=== PATIENT | male | born 1990 | race Hispanic/Latino ===

== ENCOUNTER 2024-01-23 13:51 | Emergency (ER) | payer SELFPAY ==
--- NOTE | 2024-01-23 14:05 | EDPHYS ---
Physician Documentation [facility] Name: Jaskaran Herron Age: 33 yrs Sex: Male : 1990 Arrival Date: 01/23/2024 Time: 13:51 Bed 14 Private MD: ED Physician Baldev Hernandez HPI: 01/22 14:00 This 33 yrs old Male presents to ER via EMS with complaints of Crush Injury. cp 14:00 The patient or guardian reports crush injury. The complaints affect the distal phalanx cp of right small finger. Context: resulted from a crush injury, metal scaffold. 14:00 Onset: The symptoms/episode began/occurred just prior to arrival. Associated signs and cp symptoms: The patient has no apparent associated signs or symptoms. Historical: - Allergies: 13:53 No Known Allergies; me1 - PMHx: 13:53 None; me1 - PSHx: 13:53 None; me1 - Immunization history:: Adult Immunizations unknown, Last tetanus immunization: > 10 years ago. - Infectious Disease History:: Denies. - Social history:: Smoking status: Patient denies any tobacco usage or history of. ROS: 14:02 Eyes: Negative for injury, pain, redness, and discharge, cp 14:02 Constitutional: Negative for body aches, chills, fever, 14:02 Cardiovascular: Negative for chest pain, 14:02 Respiratory: Negative for cough, shortness of breath, wheezing, 14:02 Abdomen/GI: Negative for abdominal pain, vomiting, diarrhea, constipation, 14:02 MS/extremity: Positive for injury or acute deformity, laceration, pain, of the distal phalanx of right fifth finger, 14:02 Neuro: Negative for altered mental status, dizziness, headache, 14:02 All other systems are negative, Exam: 14:02 Constitutional: The patient appears in no acute distress, alert, awake, well developed, cp well nourished, obese, uncomfortable, 14:02 Head/Face: Normocephalic, atraumatic. cp 14:02 Neck: ROM/movement: is normal, is supple, without pain, no range of motions limitations, 14:02 Chest/axilla: Inspection: normal, 14:02 Cardiovascular: Rate: normal, Rhythm: regular, 14:02 Respiratory: the patient does not display signs of respiratory distress, Respirations: normal, no use of accessory muscles, no retractions, labored breathing, is not present, Breath sounds: are clear throughout, no decreased breath sounds, no stridor, no wheezing, 14:02 Abdomen/GI: Inspection: abdomen appears normal, 14:02 Musculoskeletal/extremity: Extremities: noted in the distal phalanx of right small finger: laceration noted dasilva side and tip of digit with mild active bleeding, digit neurovascular intact, nail intact, Tendon exam: specific tendon testing normal through active and passive range of motion 14:02 Neuro: Orientation: to person, place \T\ time. Mentation: is normal, Motor: moves all fours, Vital Signs: 13:52 BP 148 / 87; Pulse 95; Resp 17; Temp 97.7; Pulse Ox 94% ; Weight 140.61 kg; Height 5 me1 ft. 10 in. ; Pain 8/10; 13:52 Body Mass Index 44.48 (140.61 kg, 177.8 cm) me1 13:52 Pain Scale: Adult me1 MDM: 13:53 Patient medically screened. cp 14:03 Differential diagnosis: dislocation, open fracture, closed fracture, contusion, tendon cp injury. 14:04 Data reviewed: vital signs, nurses notes. cp Administered Medications: 14:26 Not Given (Patient Refused): [id number] mg PO once me1 14:26 Not Given (Patient Refused): hydrocodone-tddtcoetckrvs39 mg-325 mg 1 tabs PO once; may me1 give if patient not driving 14:26 Not Given (Patient Refused): boostrix tdap0.5 ml IM once; as a single dose me1 14:26 Not Given (Patient Refused): bupivacaine(0.5 %) 5 ml 10 ml Infiltration once me1 14:26 Not Given (Patient Refused): lidocaine(1 %) 5 ml 5 ml Infiltration once; to bedside me1 Disposition: 14:50 Co-signature as Attending Physician, Baldev Hernandez MD I reviewed the patient's care rn provided by the Advanced Practice Provider and agree with the diagnosis and treatment plan. Disposition Summary: 01/23/24 14:04 Left Against Medical Advice Notes: Location: Home cp Problem: new cp Symptoms: are unchanged cp Condition: Stable cp Diagnosis - Crushing injury of right little finger, initial encounter cp Followup: cp - With: Private Physician - When: Upon discharge from the Emergency Department - Reason: Wound Recheck Discharge Instructions: - Discharge Summary Sheet cp - Crush Injury of the Hand cp Prescriptions: - Cephalexin 500 mg Oral Capsule - take 1 capsule ORAL route every 6 hours for 10 days; 40 capsule; Refills: 0, cp Product Selection Permitted Signatures: Dispatcher [employer] EDMS Baldev Hernandez MD MD rn Pb Becerril PA PA cp Mery Torrez RN RN me1 Corrections: (The following items were deleted from the chart) 13:57 13:57 Finger-Thumb Right+RAD.RAD.BRZ ordered. EDMS EDMS 23:30 14:05 MS/extremity: Positive for injury or acute deformity, laceration, pain, of the cp distal phalanx of right fifth finger, cp 23:30 14:05 Constitutional: Negative for body aches, chills, fever, cp cp 23:30 14:05 Cardiovascular: Negative for chest pain, cp cp 23:30 14:05 Respiratory: Negative for cough, shortness of breath, wheezing, cp cp 23:30 14:05 Abdomen/GI: Negative for abdominal pain, vomiting, diarrhea, constipation, cp cp 23:30 14:05 Eyes: Negative for injury, pain, redness, and discharge, cp cp 23:30 14:05 Neuro: Negative for altered mental status, dizziness, headache, cp cp 23:30 14:05 All other systems are negative, cp cp
--- NOTE | 2024-01-23 14:05 | ER ---
Nurse's Notes [facility] Name: Jaskaran Herron Age: 33 yrs Sex: Male : 1990 Arrival Date: 01/23/2024 Time: 13:51 Bed 14 Private MD: Diagnosis: Crushing injury of right little finger, initial encounter Presentation: 01/22 13:52 Chief complaint: EMS states: toned out for crush injury to right 5th digit. Coronavirus me1 screen: Vaccine status: Patient reports receiving the 2nd dose of the covid vaccine. Ebola Screen: No symptoms or risks identified at this time. Initial Sepsis Screen: Does the patient meet any 2 criteria? No. Patient's initial sepsis screen is negative. Does the patient have a suspected source of infection? No. Patient's initial sepsis screen is negative. Risk Assessment: Do you want to hurt yourself or someone else? Patient reports no desire to harm self or others. Onset of symptoms was January 23, 2024. 13:52 Method Of Arrival: EMS: [facility] [place] [place] 13:52 Acuity: DAYANARA 3 me1 Triage Assessment: 13:53 General: Appears uncomfortable, well groomed, well developed, well nourished, Behavior me1 is calm, cooperative, appropriate for age, Reports crushed the end of his right 5th digit on some scaffolding. Pain: Complains of pain in palmar aspect of distal phalanx of right little finger and right little fingernail Pain does not radiate. Pain currently is 8 out of 10 on a pain scale. Quality of pain is described as throbbing, Pain began suddenly, Is continuous. EENT: No signs and/or symptoms were reported regarding the EENT system. Neuro: Level of Consciousness is awake, alert, obeys commands, Oriented to person, place, time, situation, Appropriate for age. Cardiovascular: Patient's skin is warm and dry. Respiratory: Airway is patent Respiratory effort is even, unlabored, Respiratory pattern is regular, symmetrical. GI: No signs and/or symptoms were reported involving the gastrointestinal system. : No signs and/or symptoms were reported regarding the genitourinary system. Derm: Skin is healthy with good turgor, Skin is pink, warm \T\ dry. Wound noted palmar aspect of distal phalanx of right little finger and right little fingernail Wound is laceration/crush injury. Musculoskeletal: Reports pain in dorsal aspect of distal phalanx of right little finger, palmar aspect of distal phalanx of right little finger and right little fingernail. Injury Description: Crush injury sustained to dorsal aspect of distal phalanx of right little finger and palmar aspect of distal phalanx of right little finger is laceration was sustained 30-60 minutes ago. Historical: - Allergies: 13:53 No Known Allergies; me1 - PMHx: 13:53 None; me1 - PSHx: 13:53 None; me1 - Immunization history:: Adult Immunizations unknown, Last tetanus immunization: > 10 years ago. - Infectious Disease History:: Denies. - Social history:: Smoking status: Patient denies any tobacco usage or history of. Screenin:56 [facility] ED Fall Risk Assessment (Adult) History of falling in the last 3 months, wa1 including since admission No falls in past 3 months (0 pts) Confusion or Disorientation No (0 pts) Intoxicated or Sedated No (0 pts) Impaired Gait No (0 pts) Mobility Assist Device Used No (0 pt) Altered Elimination No (0 pt) Score/Fall Risk Level 0 - 2 = Low Risk Maintained a safe environment, Provided non-skid footwear, Hourly rounding (assess needs \T\ fall precautionary measures) done. Abuse screen: Denies threats or abuse. Nutritional screening: No deficits noted. Tuberculosis screening: No symptoms or risk factors identified. Assessment: 13:56 General: See triage assessment. . wa1 14:26 General: Patient refused treatment and stated that he wanted to leave. Counseled by wa1 EDGAR Winn regarding the need for treatment and patient still refused. AMA form signed. Patient left with steady gait and no signs of distress. Dressing to wound.. Vital Signs: 13:52 BP 148 / 87; Pulse 95; Resp 17; Temp 97.7; Pulse Ox 94% ; Weight 140.61 kg; Height 5 wa1 ft. 10 in. ; Pain 8/10; 13:52 Body Mass Index 44.48 (140.61 kg, 177.8 cm) [facility] [place] [place] 13:52 Pain Scale: Adult [facility] [place] [place] ED Course: 13:51 Patient arrived in ED. [facility] [place] [place] 13:52 Pb Becerril PA is PHCP. cp 13:52 Baldev Hernandez MD is Attending Physician. cp 13:53 Triage completed. me1 13:53 Arm band placed on Patient placed in an exam room. me1 13:56 Patient has correct armband on for positive identification. Bed in low position. Call me1 light in reach. Side rails up X 1. Provided Education on: POC. Verbalized understanding. . Client placed on continuous cardiac and pulse oximetry monitoring. NIBP monitoring applied. Pulse ox on. NIBP on. 13:56 No provider procedures requiring assistance completed. me1 14:29 Patient did not have IV access during this emergency room visit. me1 Administered Medications: 14:26 Not Given (Patient Refused): [id number] mg PO once me1 14:26 Not Given (Patient Refused): hydrocodone-avfmitgfgzotu80 mg-325 mg 1 tabs PO once; may me1 give if patient not driving 14: Not Given (Patient Refused): boostrix tdap0.5 ml IM once; as a single dose me1 14: Not Given (Patient Refused): bupivacaine(0.5 %) 5 ml 10 ml Infiltration once me1 14:26 Not Given (Patient Refused): lidocaine(1 %) 5 ml 5 ml Infiltration once; to bedside me1 Medication: 14:29 VIS not applicable for this client. me1 Outcome: 14:29 AMA AMA form signed me1 14:29 Condition: stable 14:29 Instructed on follow up and referral plans. medication usage, Demonstrated understanding of follow-up care, medications, Prescriptions given X 1, 14:30 Patient left the ED. me1 Signatures: Pb Becerril PA PA cp Eddleman, Michelle RN RN me1
[2024-01-23 15:43] VITALS: BP 148/87; TEMP 97.7; O2SAT 94
== END 2024-01-23 14:30 | disposition left against medical advice (07) ==
LOC: ER 13:51
DX: S67.196A Crushing injury of right little finger, initial encounter (principal)